=== PATIENT | female | born 1965 | race Two or more races ===

== ENCOUNTER → 2016-12-09 | Emergency (ER) | payer MEDICAID ==
[~2016-12-09] VITALS: Ht 162.6 cm; Wt 65.3 kg
[~2016-12-09] MED LIST: FLEXERIL; IBUP-51
[2016-12-09 12:47] VITALS: BP 120/64
== END | disposition home or self-care (01) ==
LOC: ER 12:30
DX: H69.82 Other specified disorders of Eustachian tube, left ear (principal); F41.9 Anxiety disorder, unspecified
CPT/HCPCS: 99281; A4606; Z7610; Z7502

== ENCOUNTER 2017-10-24 13:23 | Emergency (ER) | payer MEDICAID ==
[~2017-10-24] VITALS: Ht 152.4 cm; Wt 69.4 kg
[2017-10-24] MEDS ORDERED: IV NS 0.9% 1,000 ML BAG IV ONE (14:30)
[2017-10-24 14:37] LABS: BASOPHILS % (AUTO) 0.3 % (0.0-2.0); EOSINOPHILS # (AUTO) 0.1 /CMM (0.0-0.7); EOSINOPHILS % (AUTO) 0.6 % (0.0-6.0); HEMATOCRIT 38 % (33-45); HEMOGLOBIN 13.3 g/dL (11.5-14.8); LYMPHOCYTES % (AUTO) 32.3 % (20.0-44.0); MEAN CORPUSCULAR HEMOGLOBIN 29 PG (26.0-33.0); MEAN CORPUSCULAR HGB CONC 35 g/dl (31.0-36.0); MEAN CORPUSCULAR VOLUME 83 fL (82-100); MONOCYTES # (AUTO) 0.6 /CMM (0.1-1.30); MONOCYTES % (AUTO) 6.5 % (2.0-12.0); NEUTROPHILS # (AUTO) 5.5 /CMM (1.8-8.9); NEUTROPHILS % (AUTO) 60.3 % (43.0-81.0); PLATELET COUNT (AUTO) 268 /CMM (150-450); RDW COEFFICIENT OF VARIATION 11.8 (11.5-15.0); WHITE BLOOD COUNT (AUTO) 9.2 K/uL (4.3-11.0)
[2017-10-24 15:12] LABS: CALCIUM, SERUM 9.4 mg/dL (8.5-10.1); CARBON DIOXIDE 31 mmol/L (21-32); CHLORIDE 102 mmol/L (98-107); CREATININE 0.7 mg/dL (0.6-1.3); GLUCOSE 105 mg/dL (74-106); POTASSIUM 3.4 mmol/L (3.5-5.1); SODIUM SERUM 142 mmol/L (136-145); UREA NITROGEN, BLOOD 17 mg/dL (7-18)
[2017-10-24 15:13] LABS: INR 0.96 (0.87-1.13)
[2017-10-24 15:21] LABS: TROPONIN I < 0.017 ng/mL (0.00-0.056)
[2017-10-24 15:49] VITALS: BP 158/90
--- NOTE | 2017-10-24 15:49 | NUR ---
Patient discharged to home in stable condition. Written and verbal after care instructions given. Patient verbalizes understanding of instruction.IV removed. Catheter intact and site benign. Pressure and 4x4 applied to site. No bleeding noted.
== END 2017-10-24 15:56 | disposition home or self-care (01) ==
LOC: ER 13:25
DX: R00.2 Palpitations (principal); I10 Essential (primary) hypertension; F41.9 Anxiety disorder, unspecified
CPT/HCPCS: 36415; 71045; 80048; 84484; 85025; 85730; 93005; 96360; 99285; A4606; Z7610

== ENCOUNTER 2017-11-09 21:49 | Emergency (ER) | payer MEDICAID ==
[~2017-11-09] VITALS: Ht 157.5 cm; Wt 68.9 kg
--- NOTE | 2017-11-09 21:57 | NUR ---
CALLED FOR TRIAGE, IN RESTROOM.
--- NOTE | 2017-11-09 22:02 | NUR ---
PT AMBULATORY TO ER BED 1. PT BIB FAMILY C/O "FLU-LIKE SYMPTOMS AND HIGH BLOODPRESSURE" X 2 DAYS. PT VSS/RESP EVEN UNLABORED/NAD NOTED/SKIN WARM AND DRY/DENIES N-V-D/AOX4. AWAITING MD ARNOLD.
--- NOTE | 2017-11-09 22:10 | NUR ---
AT BEDSIDE FOR EVAL.
[2017-11-09] MEDS ORDERED: ACETAMINOPHEN ES 500 MG TABLET ONE (22:22)
--- NOTE | 2017-11-09 22:27 | NUR ---
RAPID FLU SWAB DONE AND HANDED OVER TO LAB AT THE BEDSIDE.
[2017-11-09] MEDS ORDERED: ACETAMINOPHEN 325 MG TABLET PO ONE (22:30)
--- NOTE | 2017-11-09 22:30 | NUR ---
XRAY AT BEDSIDE.
--- NOTE | 2017-11-09 23:36 | NUR ---
Patient discharged to home in stable condition. Written and verbal after care instructions given. Patient verbalizes understanding of instruction. Patient ambulatory with a steady gait.
[2017-11-09 23:37] VITALS: BP 114/65
== END 2017-11-09 23:38 | disposition home or self-care (01) ==
LOC: ER 21:53
DX: J06.9 Acute upper respiratory infection, unspecified (principal); F41.9 Anxiety disorder, unspecified
CPT/HCPCS: 71045; 87804 ×2; 99285; A4606; Z7610; 87400

== ENCOUNTER 2018-05-11 14:04 | Emergency (ER) | payer MEDICAID ==
[~2018-05-11] VITALS: Ht 157.5 cm; Wt 61.7 kg
[2018-05-11 14:04] VITALS: BP 141/89
== END 2018-05-11 16:02 | disposition home or self-care (01) ==
LOC: ER 14:06
DX: J02.9 Acute pharyngitis, unspecified (principal); I10 Essential (primary) hypertension; F41.9 Anxiety disorder, unspecified; Z90.89 Acquired absence of other organs
CPT/HCPCS: 87070; 87880; 99284; A4606; Z7610; 86403-TC

== ENCOUNTER 2019-11-14 18:36 | Emergency (ER) | payer MEDICAID ==
[~2019-11-14] VITALS: Ht 157.5 cm; Wt 71.2 kg
--- NOTE | 2019-11-14 19:18 | NUR ---
PT CAME TO ER C/O RAPID HEART RATE. PT STATES THAT SINCE , SHE SWITCHED MEDICATIONS AND SHE HAS BEEN HAVING RAPID HEART RATE. PT STATES SHE IS FEELING HOT FLASHES. AAOX4. NO SOB. BREATHING EVENLY AND UNLABORED ON ROOM AIR. DENIES CHEST PAIN. 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
--- NOTE | 2019-11-14 19:30 | NUR ---
Elly jorge in [facility] - 11/14/19 at 1930 by SETH SEEN AND EXAMINED BY
--- NOTE | 2019-11-14 19:30 | NUR ---
SEEN AND EXAMINED BY
[2019-11-14] MEDS ORDERED: IV NS 0.9% 500 ML BAG IV ONE (20:00)
--- NOTE | 2019-11-14 20:12 | NUR ---
BLOOD DRAWN AND SENT TO LAB FOR TESTING
[2019-11-14 20:13] LABS: BASOPHILS # (AUTO) 0.1 /CMM (0.0-0.2); BASOPHILS % (AUTO) 0.9 % (0.0-2.0); EOSINOPHILS % (AUTO) 0.7 % (0.0-6.0); HEMATOCRIT 38 % (33-45); HEMOGLOBIN 12.8 g/dL (11.5-14.8); LYMPHOCYTES # (AUTO) 3.4 /CMM (0.8-4.8); LYMPHOCYTES % (AUTO) 46.3 % (20.0-44.0); MEAN CORPUSCULAR HGB CONC 34 g/dl (31.0-36.0); MEAN CORPUSCULAR VOLUME 86 fL (82-100); MONOCYTES # (AUTO) 0.4 /CMM (0.1-1.30); MONOCYTES % (AUTO) 5.9 % (2.0-12.0); NEUTROPHILS # (AUTO) 3.4 /CMM (1.8-8.9); NEUTROPHILS % (AUTO) 46.2 % (43.0-81.0); PLATELET COUNT (AUTO) 264 /CMM (150-450); RED BLOOD CELL COUNT(AUTO) 4.38 MIL/uL (4.0-5.2); WHITE BLOOD COUNT (AUTO) 7.4 K/uL (4.3-11.0)
--- NOTE | 2019-11-14 20:31 | NUR ---
XRAY AT BEDSIDE
[2019-11-14 20:43] LABS: D-DIMER 0.27 mg/L(FEU (0.17-0.50)
[2019-11-14 21:01] LABS: CALCIUM, SERUM 8.8 mg/dL (8.5-10.1); CARBON DIOXIDE 25 mmol/L (21-32); CHLORIDE 102 mmol/L (98-107); GLUCOSE 107 mg/dL (74-106); POTASSIUM 3.5 mmol/L (3.5-5.1); SODIUM SERUM 139 mmol/L (136-145); UREA NITROGEN, BLOOD 24 mg/dL (7-18)
[2019-11-14 21:12] LABS: B-TYPE NATRIURETIC PEPTIDE 27 PG/ML (0-125); THYROID STIMULATING HORMONE 0.989 uIU/mL (0.358-3.74)
[2019-11-14 22:10] VITALS: BP 111/77
--- NOTE | 2019-11-14 22:10 | NUR ---
IV removed. Catheter intact and site benign. Pressure and 4x4 applied to site. No bleeding noted. Patient discharged to home in stable condition. Written and verbal after care instructions given. Patient verbalizes understanding of instruction.
== END 2019-11-14 22:11 | disposition home or self-care (01) ==
LOC: ER 18:38
DX: R00.0 Tachycardia, unspecified (principal); I10 Essential (primary) hypertension
CPT/HCPCS: 36415; 71045; 80048; 83880; 84439; 84443; 84484; 85025; 85378; 85730; 93005 ×2; 99284; J7030 ×2

== ENCOUNTER 2019-11-18 10:25 | Emergency (ER) | payer MEDICAID ==
[~2019-11-18] VITALS: Ht 157.5 cm; Wt 72.6 kg
--- NOTE | 2019-11-18 10:40 | NUR ---
PT BIB SELF C/O PALPITATION, APPEARES ANXIOUS HIGH BLOOD PRESSURE, PT IS AAOX4, NOT IN RESPIRATORY DISTRESS, HOOKED TO DIRECTOR CENTER, KEPT RESTED AND COMFORTABLE, WILL CONTINUE TO MONITOR.
--- NOTE | 2019-11-18 10:55 | NUR ---
SEEN AND EXMAINED BY .
[2019-11-18] MEDS ORDERED: diphenhydrAMINE HCL 25 MG CAPSULE ONE (10:58)
[2019-11-18] MEDS ORDERED: LABETALOL HCL IV 100MG VIAL ONE (10:58)
[2019-11-18] MEDS ORDERED: DIPHENHYDRAMINE HCL 12.5 MG/5 ML UDC PO ONE (11:00)
[2019-11-18] MEDS ORDERED: LABETALOL HCL IV 100MG VIAL IV ONE (11:00)
--- NOTE | 2019-11-18 11:00 | NUR ---
IV LINE ESTABLISHED, G20 R HAND
[2019-11-18] MEDS ORDERED: AMLO5TAB9 PO (11:20)
[2019-11-18] MEDS ORDERED: METO25TA20 PO (11:20)
[2019-11-18 12:56] VITALS: BP 131/88
== END 2019-11-18 12:57 | disposition home or self-care (01) ==
LOC: ER 10:25
DX: I10 Essential (primary) hypertension (principal); R00.0 Tachycardia, unspecified; R00.2 Palpitations; F41.9 Anxiety disorder, unspecified; Z79.899 Other long term (current) drug therapy
CPT/HCPCS: 99283; 96374; J3490; Q0163